=== PATIENT | male | born 1990 | race Two or more races ===

== ENCOUNTER 2024-10-10 11:14 | Emergency (ER) | payer OTHER ==
[2024-10-10 11:31] VITALS: BP 134/77; PULSE 99; RESP 19; TEMP 98; BMI 29.0
== END 2024-10-10 12:57 | disposition home or self-care (01) ==
LOC: JER 11:14
DX: L23.9 Allergic contact dermatitis, unspecified cause (principal)
CPT/HCPCS: 99283-25